=== PATIENT | female | born 1960 ===

== ENCOUNTER 2018-07-23 22:45 | Emergency (ER) | payer OTHER ==
[2018-07-23 22:58] VITALS: BMI 36.3
[2018-07-23 23:00] VITALS: RESP 18; TEMP 98.1
[2018-07-24 01:51] VITALS: BP 105/79; PULSE 75; O2SAT 100
--- NOTE | 2018-07-24 02:50 | ED PDOC ---
Arrival/HPI - General Chief Complaint: Trauma Time Seen by Provider: 07/23/18 22:50 Historian: Patient - History of Present Illness Narrative History of Present Illness (Text): 07/24/18 23:25 58 year old female, whose past medical history includes hypertension and brain surgery 8 years ago, who presents to the emergency department status post tripping and falling yesterday. Patient states she put both of her hands out to break her fall. Patient reports bruising to her right hand but states that her right hand has been rendered numb due to the brain surgery. Patient is concerned and unable to determine any trauma from the fall yesterday to right hand, so she presents to the Emergency department for evaluation of the hand. Patient denies hitting her head, loss of consciousness, or any other complaints. PMD: Delicia Kent Time/Duration: Other (Patient notes trip and fall yesterday) Symptom Onset: Sudden Symptom Course: Unchanged Activities at Onset: Light Context: Tripped (Patient notes trip and fall yesterday ) Past Medical History - Provider Review Nursing Documentation Reviewed: Yes - Infectious Disease Hx of Infectious Diseases: None - Cardiac Hx Cardiac Disorders: Yes - Pulmonary Hx Respiratory Disorders: No - Neurological Hx Neurological Disorder: Yes Hx Seizures: Yes (last seizure 10/2014) Other/Comment: brain tumor - HEENT Hx HEENT Disorder: No - Renal Hx Renal Disorder: No - Endocrine/Metabolic Hx Endocrine Disorders: Yes Hx Diabetes Mellitus Type 2: Yes - Hematological/Oncological Hx Blood Disorders: No - Integumentary Hx Dermatological Disorder: No - Musculoskeletal/Rheumatological Hx Musculoskeletal Disorders: No - Gastrointestinal Hx Gastrointestinal Disorders: No - Genitourinary/Gynecological Hx Genitourinary Disorders: No - Psychiatric Hx Psychophysiologic Disorder: No Hx Substance Use: No - Surgical History Hx Appendectomy: Yes Hx Cholecystectomy: Yes Other/Comment: brain tumor/surgery - Anesthesia Hx Anesthesia: Yes Hx Anesthesia Reactions: No Hx Malignant Hyperthermia: No - Suicidal Assessment Feels Threatened In Home Enviroment: No Family/Social History - Physician Review Nursing Documentation Reviewed: Yes Family/Social History: No Known Family HX Smoking Status: Never Smoked Hx Alcohol Use: No Hx Substance Use: No Allergies/Home Meds Allergies/Adverse Reactions: Allergies indomethacin Allergy (Verified 07/23/18 23:30) tachycardia iodine Allergy (Verified 07/23/18 23:30) ITCHING prednisone Allergy (Verified 07/23/18 23:30) palpitations Sulfa (Sulfonamide Antibiotics) Allergy (Verified 07/23/18 23:30) RASH ioversol Adverse Reaction (Verified 07/23/18 23:30) ITCHING Home Medications: Home Meds Medication Instructions Recorded Confirmed Aspirin [Aspir 81] 81 mg PO DAILY 11/21/13 07/23/18 Simvastatin 20 mg PO HS 11/21/13 07/23/18 Omeprazole 20 mg PO DAILY 11/14/14 07/23/18 levETIRAcetam [Keppra] 250 mg PO TID 03/13/18 07/23/18 Cholecalciferol (Vitamin D3) 1 tab PO DAILY 07/23/18 07/23/18 [Vitamin D3] Gabapentin [Neurontin] 100 mg PO BID 07/23/18 07/23/18 Ibuprofen [Motrin Tab] 400 mg PO PRN PRN 07/23/18 07/23/18 Review of Systems - Physician Review All systems were reviewed & negative as marked: Yes - Review of Systems Constitutional: Normal Musculoskeletal: Other (Patient notes bruising to right hand, which was rendered numb due to brain surgery done 8 years ago). absent: Normal Physical Exam Vital Signs Reviewed: Yes Vital Signs Temp Pulse Resp BP Pulse Ox 07/24/18 01:00 75 18 105/79 100 07/23/18 22:58 98.1 F 71 18 95/66 L 96 Temperature: Afebrile Blood Pressure: Hypotensive Pulse: Regular Respiratory Rate: Normal Appearance: Positive for: Well-Appearing, Non-Toxic, Comfortable Pain Distress: None Mental Status: Positive for: Alert and Oriented X 3 - Systems Exam Head: Present: Atraumatic, Normocephalic Pupils: Present: PERRL Extroacular Muscles: Present: EOMI Conjunctiva: Present: Normal Mouth: Present: Moist Mucous Membranes Neck: Present: Normal Range of Motion Respiratory/Chest: Present: Clear to Auscultation, Good Air Exchange. No: Respiratory Distress, Accessory Muscle Use Cardiovascular: Present: Regular Rate and Rhythm, Normal S1, S2. No: Murmurs Abdomen: No: Tenderness, Distention, Peritoneal Signs Back: Present: Normal Inspection Upper Extremity: Present: Normal Inspection. No: Cyanosis, Edema Lower Extremity: Present: Normal Inspection. No: Edema Neurological: Present: GCS=15, CN II-XII Intact, Speech Normal Skin: Present: Warm, Dry, Normal Color. No: Rashes Psychiatric: Present: Alert, Oriented x 3, Normal Insight, Normal Concentration Medical Decision Making ED Course and Treatment: 07/24/18 23:35 Impression: 58 year old female who presents to the emergency department for evaluation of right hand status post tripping and falling yesterday. Plan: -- X-ray of right hand, 3 views -- X-ray of right wrist, 3 views -- Reassess and disposition Prior Visits: Notes and results from previous visits were reviewed. Patient was last seen in the emergency department on 03/12/18 accompanied by relative complaining of chest discomfort. Patient was hospitalized in stable condition. Progress Notes: - RAD Interpretation Radiology Orders: 07/23/18 23:31 HAND RIGHT 3 VIEWS [RAD] Stat WRIST, RIGHT 3 VIEWS [RAD] Stat - Scribe Statement The provider has reviewed the documentation as recorded by the Scribe Megan Hernandezh All medical record entries made by the Scribe were at my direction and personally dictated by me. I have reviewed the chart and agree that the record accurately reflects my personal performance of the history, physical exam, medical decision making, and the department course for this patient. I have also personally directed, reviewed, and agree with the discharge instructions and disposition. Disposition/Present on Arrival - Present on Arrival Any Indicators Present on Arrival: No History of DVT/PE: No History of Uncontrolled Diabetes: No Urinary Catheter: No History of Decub. Ulcer: No History Surgical Site Infection Following: None - Disposition Have Diagnosis and Disposition been Completed?: Yes Diagnosis: Wrist sprain Disposition: HOME/ ROUTINE Disposition Time: 00:30 Condition: GOOD Discharge Instructions (ExitCare): Wrist Sprain (DC) Additional Instructions: CELINE EASON, thank you for letting us take care of you today. The emergency medical care you received today was directed at your acute symptoms. If you were prescribed any medication, please fill it and take as directed. It may take several days for your symptoms to resolve. Return to the Emergency Department if your symptoms worsen, do not improve, or if you have any other problems. Please contact your doctor or call one of the physicians/clinics you have been referred to that are listed on the Patient Visit Information form that is included in your discharge packet. Bring any paperwork you were given at discharge with you along with any medications you are taking to your follow up visit. Our treatment cannot replace ongoing medical care by a primary care provider outside of the emergency department. Thank you for allowing the [facility] team to be part of your care today. You had an X-Ray : A Radiologist will review the ED reading if any change in treatment is needed we will contact you. Follow up with your primary care doctor this week for re-evaluation and further management. Referrals: Delicia Wilson MD [Primary Care Provider] - Follow up with primary Forms: [employer] (Sami)
--- NOTE | 2018-07-24 10:53 | RAD ---
PROCEDURE: Right Hand Radiographs. HISTORY: s/p fall r/o fx COMPARISON: None. FINDINGS: BONES: There is a fracture through the base of the 3rd distal phalanx seen on the lateral view only. JOINTS: Normal. No osteoarthritic changes. SOFT TISSUES: Normal. OTHER FINDINGS: None. IMPRESSION: There is a fracture through the base of the 3rd distal phalanx seen on the lateral view only.
--- NOTE | 2018-07-24 10:54 | RAD ---
Date of service: 07/23/2018 PROCEDURE: Right Wrist Radiographs. HISTORY: s/p fall r/o fx COMPARISON: None. FINDINGS: BONES: Normal. No fracture. JOINTS: Normal. No dislocation. SOFT TISSUES: Normal. OTHER FINDINGS: None. IMPRESSION: Normal right wrist radiographs.
== END 2018-07-24 01:00 | disposition home or self-care (01) ==
LOC: ED 22:45
DX: S63.501A Unspecified sprain of right wrist, initial encounter (principal); W01.0XXA Fall on same level from slipping, tripping and stumbling without subsequent striking against object, initial encounter; Y92.9 Unspecified place or not applicable